=== PATIENT | male | born 2000 | race Asian ===

== ENCOUNTER 2018-04-18 13:16 | Emergency (ER) | payer OTHER ==
--- NOTE | 2018-04-18 14:18 | EDPHY ---
H & P Stated Complaint: phelps x 1 week Time Seen by Provider: 04/18/18 14:04 HPI/ROS: CHIEF COMPLAINT: Headache HISTORY OF PRESENT ILLNESS: 17-year-old male presents with headache. Awoke this morning with a severe headache. The headache lasted approximately 3 hr and now is subsiding. Currently 3/10. Recent history of multiple headaches in the past week, some sudden in onset, and typically lasting 3-5 hours. During the headache, he is unable to do his usual activities. Persistent mild headache for 1 week. No recent illness. No medications tried. No prior history headaches. No recent head or neck trauma. REVIEW OF SYSTEMS: complete 10 point ROS reviewed and is negative except at noted in the HPI - Personal History Current Tetanus Diphtheria and Acellular Pertussis (TDAP): Unsure - Medical/Surgical History Hx Asthma: No Hx Chronic Respiratory Disease: No Hx Diabetes: No Hx Cardiac Disease: No Hx Renal Disease: No Hx Cirrhosis: No Hx Alcoholism: No Hx HIV/AIDS: No Hx Splenectomy or Spleen Trauma: No Other PMH: denies - Social History Smoking Status: Never smoked Alcohol Use: None Drug Use: None Additional Social History: Student at [employer] Lives in [place] - Physical Exam Exam: General Appearance: Alert, pleasant Eyes: Pupils equal and round, no conjunctival pallor or injection ENT, Mouth: Mucous membranes moist Neck: Normal inspection Respiratory: Lungs are clear to auscultation Cardiovascular: Regular rate and rhythm Gastrointestinal: Abdomen is soft and nontender Neurological: Alert, oriented x3, cranial nerves II through XII intact, motor 5 /5, sensory intact to light touch, normal gait Skin: Warm and dry, no rash Extremities: Nontender, no pedal edema Psychiatric: Mood and affect normal Constitutional: Initial Vital Signs Temperature (C) 36.6 C 04/18/18 13:20 Heart Rate 76 04/18/18 13:20 Respiratory Rate 17 04/18/18 13:20 Blood Pressure 114/72 04/18/18 13:20 O2 Sat (%) 97 04/18/18 13:20 O2 Delivery Mode Room Air Allergies/Adverse Reactions: No Known Allergies Allergy (Unverified 04/18/18 13:20) Home Medications: Medication Instructions Recorded NK [No Known Home Meds] 04/18/18 Medical Decision Making - Diagnostics Imaging Results: CT/CTA of the brain read by Dr. Sanford is unremarkable. Imaging: Discussed imaging studies w/ general claims agent Radiologist ED Course/Re-evaluation: This pt presents with severe recurrent PHELPS's. Concern for cluster PHELPS vs SAH. d/ w pt, no FH of SAH. Minimal PHELPS now. CT/CTA brain negative. Results d/w pt. Minimal PHELPS now. d/w pt CT/CTA sensitivitivity for SAH, not a perfect test, LP only diagnostic tests to completely rule out the possibility of subarachnoid hemorrhage. Patient declines LP. Decadron 10mg IV and Toradol 30mg IV given on d/c. Will follow up with Neuro. Differential Diagnosis: Headache including but not limited to subarachnoid hemorrhage, migraine headache , tension headache and infectious causes such as meningitis, pharyngitis and sinusitis. - Data Points Laboratory Results: Laboratory Results 04/18/18 14:46 04/18/18 14:46 Medications Given: Discontinued Medications Dexamethasone (Decadron Injection) 10 mg IVP EDNOW ONE Stop: 04/18/18 17:09 Last Admin: 04/18/18 17:23 Dose: 10 mg Ketorolac Tromethamine (Toradol) 30 mg IVP EDNOW ONE Stop: 04/18/18 17:09 Last Admin: 04/18/18 17:23 Dose: 30 mg Departure - Departure Disposition: Home, Routine, Self-Care Clinical Impression: Headache Qualifiers: Headache type: other headache syndrome Qualified Code(s): G44.89 - Other headache syndrome Condition: Good Instructions: Acute Headache (ED) Additional Instructions: Ibuprofen 600 mg 3 times daily while the pain persists. Referrals: Jarad Paulino MD [Medical Doctor] - As per Instructions Dale Altamirano DO [Medical Doctor] - As per Instructions (Call to make an appointment.) Stand Alone Forms: School Excuse, Statement of Treatment
[2018-04-18 14:57] LABS: PLATELET COUNT 257 10^3/uL (150-400)
[2018-04-18] MEDS ORDERED: IOPAMIDOL (ISOVUE 370) 100 ML BTL IV ONE ×3 (15:10→16:26)
[2018-04-18] MEDS ORDERED: DEXAMETHASONE 10 MG/ML VIAL IVP ONE (17:08)
[2018-04-18] MEDS ORDERED: KETOROLAC 30 MG/1 ML SDV IVP ONE (17:08)
[2018-04-18 17:56] VITALS: BP 110/66
== END 2018-04-18 17:55 | disposition home or self-care (01) ==
DX: G44.89 Other headache syndrome (principal)
CPT/HCPCS: 96374; J1100; J1885; Q9967

== ENCOUNTER 2018-09-21 22:20 | Emergency (ER) | payer SELFPAY ==
[2018-09-21] MEDS ORDERED: IBUPROFEN 800 MG TAB PO ONE (22:30)
--- NOTE | 2018-09-21 22:30 | EDPHY ---
H & P Stated Complaint: cough, congestion, fever, sore throat x3 days Time Seen by Provider: 09/21/18 22:30 HPI/ROS: HPI CHIEF COMPLAINT: Flu-like illness, sore throat, cough, muscle aches, fever HISTORY OF PRESENT ILLNESS: This otherwise healthy 18-year-old male, no medical history, presents emergency room with flu-like illness. He arrives emergency room complaining of a cough nonproductive, muscle aches, joint pain, fever, sore throat. He is unsure if he got his flu shot this year. He denies any significant pain except muscle aches and joint pain. Past Medical History: Denies significant medical history Past Surgical History: Denies significant surgical history Social History: [employer] student, denies drugs alcohol tobacco. Family History: Noncontributory ROS REVIEW OF SYSTEMS: 10 Systems were reviewed and negative with the exception of the elements mentioned in the history of present illness. Exam Constitutional appears nontoxic triage nursing summary reviewed, vital signs reviewed, awake/alert. Vital signs at triage tachycardic, febrile. Eyes normal conjunctivae and sclera, EOMI, PERRLA. HENT posterior pharynx erythematous no significant exudate, no significant swelling, normal inspection, atraumatic, moist mucus membranes, no epistaxis, neck supple/ no meningismus, no raccoon eyes. Respiratory dry cough on exam, clear to auscultation bilaterally, normal breath sounds, no respiratory distress, no wheezing. Cardiovascular tachycardia, regular rhythm, no murmur, no edema, distal pulses normal. Gastrointestinal soft, non-tender, no rebound, no guarding, normal bowel sounds, no distension, no pulsatile mass. Genitourinary no CVA tenderness. Musculoskeletal no midline vertebral tenderness, full range of motion, no calf swelling, no tenderness of extremities, no meningismus, good pulses, neurovascularly intact. Skin pink, warm, & dry, no rash, skin atraumatic. Neurologic awake, alert and oriented x 3, AAOx3, moves all 4 extremities equally, motor intact, sensory intact, CN II-XII intact, normal cerebellar, normal vision, normal speech. Psychiatric normal mood/affect. Heme/Lymph/Immune no lymphadenopathy. Differential Diagnosis: Includes but is not limited to in a particular order viral syndrome, URI, acute febrile illness, pneumonia, influenza, strep, viral pharyngitis Medical Decision Making: Plan for this patient IV establishment IV fluid bolus , Motrin for fever and pain control 800 mg, chest x-ray two view, check rapid strep, check influenza and re-evaluate. Re-evaluation: 11:26 p.m.. Lab notified influenza a positive. Patient continues to do well. Heart rate normalized. Well-hydrated IV fluids, fever down with Tylenol Motrin. Received DuoNeb breathing treatment for cough and bronchitic cough. Much improved. Clear chest x-ray. Return precautions discussed with the patient Additionally understands to drink lots of fluids stay well-hydrated alternate Tylenol Motrin for fever pain control Return emergency room if worsening symptoms he understands comfortable this plan. Source: Patient - Personal History Current Tetanus/Diphtheria Vaccine: Yes Current Tetanus Diphtheria and Acellular Pertussis (TDAP): Yes - Medical/Surgical History Hx Asthma: No Hx Chronic Respiratory Disease: No Hx Diabetes: No Hx Cardiac Disease: No Hx Renal Disease: No Hx Cirrhosis: No Hx Alcoholism: No Hx HIV/AIDS: No Hx Splenectomy or Spleen Trauma: No Other PMH: denies - Social History Smoking Status: Never smoked Constitutional: Initial Vital Signs Temperature (C) 38.6 C H 09/21/18 22:24 Heart Rate 119 H 09/21/18 22:24 Respiratory Rate 16 09/21/18 22:24 Blood Pressure 165/93 H 09/21/18 22:24 O2 Sat (%) 94 09/21/18 22:24 O2 Delivery Mode Room Air Allergies/Adverse Reactions: No Known Allergies Allergy (Verified 09/21/18 22:22) Home Medications: Medication Instructions Recorded Ibuprofen [Motrin (*)] 800 mg PO Q6-8PRN #10 tab 09/21/18 Oseltamivir Phosphate [Tamiflu 75 75 mg PO BID #10 cap 09/21/18 mg (*)] Medical Decision Making - Data Points Laboratory Results: Laboratory Results 09/21/18 22:45 09/21/18 22:45 09/21/18 Unknown Group A Strep DNA NEGATIVE (NEGATIVE) Medications Given: Discontinued Medications Acetaminophen (Tylenol) 1,000 mg PO EDNOW ONE Stop: 09/21/18 22:31 Last Admin: 09/21/18 23:43 Dose: Not Given Acetaminophen (Tylenol) 1,000 mg PO EDNOW ONE Stop: 09/21/18 23:38 Last Admin: 09/21/18 23:40 Dose: 1,000 mg Albuterol/Ipratropium (Duoneb) 3 ml IH EDNOW ONE Stop: 09/22/18 02:21 Last Admin: 09/22/18 02:27 Dose: 3 ml Sodium Chloride (Ns) 1,000 mls @ 0 mls/hr IV ONCE ONE PRN Reason: Wide Open Stop: 09/21/18 22:37 Last Admin: 09/21/18 22:42 Dose: 1,000 mls Sodium Chloride (Ns) 1,000 mls @ 0 mls/hr IV ONCE ONE; Wide Open PRN Reason: Protocol Stop: 09/21/18 23:38 Last Admin: 09/21/18 23:39 Dose: 1,000 mls Sodium Chloride (Ns) 1,000 mls @ 0 mls/hr IV ONCE ONE PRN Reason: Wide Open Stop: 09/22/18 00:45 Last Admin: 09/22/18 00:46 Dose: 1,000 mls Ibuprofen (Motrin) 800 mg PO EDNOW ONE Stop: 09/21/18 22:31 Last Admin: 09/21/18 22:49 Dose: 800 mg Oseltamivir Phosphate (Tamiflu) 75 mg PO EDNOW ONE Stop: 09/21/18 23:26 Last Admin: 09/21/18 23:31 Dose: 75 mg Departure - Departure Disposition: Home, Routine, Self-Care Clinical Impression: Influenza A Condition: Good Instructions: Ibuprofen (By mouth), Oseltamivir (By mouth), Influenza (ED) Additional Instructions: 1. Make sure to drink lots of fluids and stay well-hydrated. 2. I recommend that you alternate Tylenol and Motrin every 6 hr. This will help control her fever and pain. 3. Tamiflu as prescribed 4. Return to the emergency room if worsening symptoms questions or concerns. Referrals: NONE *PRIMARY CARE P,. [Primary Care Provider] - As per Instructions [facility] [[facility]] - As per Instructions Stand Alone Forms: School Excuse Prescriptions: Ibuprofen [Motrin (*)] 800 mg PO Q6-8PRN #10 tab Oseltamivir Phosphate [Tamiflu 75 mg (*)] 75 mg PO BID #10 cap
[2018-09-21] MEDS ORDERED: NS 1,000 ML IV ONE ×2 (22:36→23:37)
[2018-09-21 22:52] LABS: PLATELET COUNT 220 10^3/uL (150-400)
[2018-09-21] MEDS: ACETAMINOPHEN 500 MG TAB PO ONE ×2 (22:56→23:43)
[2018-09-21] MEDS ORDERED: OSELTAMIVIR PHOSPHATE 75 MG CAP PO ONE (23:25)
[2018-09-21] MEDS ORDERED: ACETAMINOPHEN 500 MG TAB ONE (23:33)
[2018-09-21] MEDS ORDERED: ACETAMINOPHEN 500 MG TAB PO ONE (23:37)
[2018-09-22] MEDS ORDERED: NS 1,000 ML IV ONE (00:44)
[2018-09-22 02:08] VITALS: BP 114/68
[2018-09-22] MEDS ORDERED: IPRATROPIUM/ALBUTEROL 3 ML DEYVIAL IH ONE (02:20)
== END 2018-09-22 02:47 | disposition home or self-care (01) ==
DX: J10.1 Influenza due to other identified influenza virus with other respiratory manifestations (principal)